=== PATIENT | female | born 1985 ===

== ENCOUNTER 2023-08-28 21:05 | Outpatient (REF) | payer OTHER, SELFPAY ==
[2023-08-28 22:14] LABS: Bacteria Rare HPF (Negative); C & S Indicated? C&S Done As Ordered; Casts Negative LPF (Negative); Crystals Negative HPF (Negative); Epithelial Cells Few HPF (Negative); Mucus Negative (Negative); RBC 0-2 HPF (0-2); WBC Negative HPF (0-5)
== END 2023-08-28 21:06 | disposition home or self-care (01) ==
LOC: LBN 21:05
PROVIDERS: Visit Provider Nurse Practitioner Family
DX: R30.0 Dysuria (principal)
CPT/HCPCS: 81015; 87086